=== PATIENT | male | born 1965 | race Caucasian/White ===

== ENCOUNTER → 2017-02-12 | Outpatient (CLI) | payer OTHER ==
[~2017-02-12] MED LIST: ACYCLOVIR400 MG PO; ALBUTEROL0.09 MG/A2 INH; AMOXICILLIN500 MG PO; AMOXIL500 MG PO; ANAPROX DS550 MG PO; ATARAX,VISTARIL50 MG PO; AUGMENTIN 875 M1 TAB PO; BENZTROPINE ME0.5 MG PO; CLARITIN10 MG PO; HALDOL5 MG PO; KEFLEX500 MG PO; LIDEX 0.05% CRE15 GM T; LISINOPRIL10 MG PO; MEDROL DOSEPAK4 MG PO; METFORMIN500 MG PO; PRAVACHOL20 MG PO; REMERON45 MG PO; RISPERDAL4 MG PO; SYNTHROID,LEVO50 MCG PO; TESSALON PERLE100 M1 PO; TRAMADOL HCL50 MG PO; TRAZADONE HYDR100 MG PO; VICODIN 500 MG-1 TAB PO; VISTARIL25 M1 PO; VITAMIN D50000 I3 PO; ZITHROMAX Z PA250 MG PO; ZOLOFT100 MG PO; ZYRTEC10 M2 PO
== END | disposition home or self-care (01) ==
LOC: MRI 02-11 08:00
DX: J32.2 Chronic ethmoidal sinusitis (principal); H90.41 Sensorineural hearing loss, unilateral, right ear, with unrestricted hearing on the contralateral side

== ENCOUNTER → 2017-12-28 | Outpatient (CLI) | payer OTHER ==
[~2017-12-28] MED LIST changes: +MOTRIN 600 MG E4 TAB PO
== END | disposition home or self-care (01) ==
LOC: MRI 12-18 13:00
DX: M48.02 Spinal stenosis, cervical region (principal)

== ENCOUNTER 2018-07-20 17:53 | Inpatient (IN) | payer OTHER ==
[~2018-07-20] VITALS: Ht 182.8 cm; Wt 112.6 kg
--- NOTE | ~2018-07-20 | EKG ---
[place], [place] ELECTROCARDIOGRAM REPORT NAME: KALEN BACON UNIT #: [id number] ROOM: 424 DOCTOR: JOANIE DRAFT REPORT BIRTHDATE: [birth year] [facility] Test Date: 2018-07-20 Test Time: 18:44:19 Pat Name: KALEN BACON Department: Room: 424 Gender: M Orthopaedic Physician Assistant: Elvia Grande : 1965 Requested By: ZION QUIROGA Order Number: [id number] Reading MD: Faith Green Measurements Intervals [place] Rate: 77 P: 54 CA: 125 QRS: -49 QRSD: 96 T: 27 QT: 386 QTc: 437 Interpretive Statements Sinus rhythm Left anterior fascicular block Abnormal R-wave progression, late transition Electronically Signed On 07-21-2018 11:00:51 PDT by Faith Green CM:EKGRPT:ELECTROCARDIOGRAM REPORT [id number] ZION NAIR DRAFT REPORT ZION QUIROGA M.D.
--- NOTE | ~2018-07-20 | CON ---
[place], [place] REPORT OF CONSULTATION NAME: KALEN BACON UNIT #: [id number] ROOM: 424 DOCTOR: PHD BHUPINDER SHER BIRTHDATE: [birth year] DOS: 07/21/2018 HISTORY OF PRESENT ILLNESS: The patient is a 53-year-old male, referred by the hospitalist due to concerns for suicidal ideation. The patient is presently on the 4th floor at [facility]. The patient has been in a relationship with his partner for the past 3 years. They have a daughter together. The patient was living with his uncle, but his uncle asked him to leave because the patient was not taking his medications as prescribed and his behavior had become erratic. The patient has been staying with friends for the past few weeks, but is unsure what his long-term plans are. 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 He is planning on pursuing disability. The patient drinks 30 beers daily. He denied tobacco use and endorsed occasional marijuana use. PAST MEDICAL HISTORY: Anxiety, bronchitis, depression, diabetes, hyperlipidemia, hypothyroidism, paranoid schizophrenia, right shoulder pain, sinusitis. MEDICATIONS: Vitamin D, B12, thiamine 100 mg, Zoloft, Zestril, Haldol, Lovenox, Synthroid, Zocor, Remeron, Vistaril, DuoNeb, Humalog. ALLERGIES: BENTYL, ROBAXIN, ATIVAN, LIBRIUM. SOCIAL HISTORY: The patient was lying in bed, in no apparent distress. He was awake, alert and oriented. His girlfriend was present with his permission. Mood was depressed and affect was restricted in range. He firmly denied suicidal ideation, plan and intent. He also denied homicidal ideation, plan and intent. He stated his depression has improved since he has been in the hospital and working with [facility] to pursue inpatient drug rehab. He stated he was feeling suicidal several days ago, but was able to contract for safety. He denied a plan. He endorsed feeling hopeless, helpless. He is perseverating on his current homelessness. He follows up with [facility] for his outpatient treatment and states he has his next appointment on 08/10/2018. His girlfriend stated that he does very well on his medications and then stops taking them and becomes paranoid and delusional. Speech and language were within normal limits conversationally. Thought content was linear and goal directed. There was no evidence of hallucinations or delusions. Insight and judgment were fair. The patient is open to pursuing inpatient drug rehab. He denied a need for inpatient psychiatric treatment at this time given that he is not suicidal and wanting to . DIAGNOSIS: Alcohol use disorder, schizoaffective disorder. PLAN: At this time, given that the patient is denying suicidal ideation, plan and intent, he does not appear appropriate for inpatient psychiatric treatment. He would likely benefit more from continuing with [facility] services to address his alcohol use disorder. The patient is stating he is hoping to be placed in an inpatient alcohol rehabilitation program, which would likely be very beneficial for him. [place], [place] REPORT OF CONSULTATION NAME: KALEN BACON UNIT #: [id number] ROOM: 424 DOCTOR: BHUPINDER, PHD SHER BIRTHDATE: [birth year] Thank you very much for this consult. Natty Suazo, PhD CM:CONSTR:REPORT OF CONSULTATION 1421 07/21/18 [id number] interface
[2018-07-20 17:55] VITALS: BP 105/72
--- NOTE | 2018-07-20 18:06 | NUR ---
PATIENT BELONGINGS HAVE BEEN TAKEN AT THIS TIME AND PLACED IN MED ROOM. 2 BAGS TOTAL. INCLUDED IS JEANS, SHIRT, HAT, MEDS, SHOES. PATIENT CHANGED INTO GOWN.
--- NOTE | 2018-07-20 18:19 | NUR ---
psychiatric assessment: met with client who is known to me, client reports that he came here because he was having some thoughts off and on and he has been drinking more. he reports that he is not suicidal now, but he also said that he is homeless and he is having some chest tightness and anxiety. dr humphrey is going to check him out medically and then we can move forward, perhaps [facility] for the alcohol since he is not suicidal with a plan now. it would not be likely that he would meet criteria for inpatient psych at this time, since he is denying suicide and he has no plan.
--- NOTE | 2018-07-20 18:30 | NUR ---
URINAL GIVEN TO PATIENT AT THIS TIME FOR URINE SAMPLE.
[2018-07-20 18:35] LABS: BASO % 0.4 % (0.0-1.0); EOS # 0.1 10*3/uL (0.0-0.4); EOS % 0.8 % (1.0-4.0); HEMATOCRIT 42.7 % (42.0-52.0); HEMOGLOBIN 14.5 g/dl (14.0-18.0); LYMPH # 1.8 10*3/uL (1.3-4.4); LYMPH % 19.9 % (27.0-41.0); MEAN CELL VOLUME 97.3 fl (80.0-94.0); MEAN PLATELET VOLUME 9.9 fl (9.6-12.3); MONO # 0.7 10*3/uL (0.1-1.0); MONO % 7.6 % (3.0-9.0); NEUT # 6.5 10*3/uL (2.3-7.9); NEUT % 71.1 % (47.0-73.0); PLATELET COUNT AUTOMATED 204 10*3/uL (130-400); RED BLOOD COUNT 4.39 10*6/uL (4.50-5.90); RED CELL DISTRI WIDTH 13.2 % (0-14.5); WHITE BLOOD COUNT 9.1 10*3/uL (4.8-10.8)
[2018-07-20 18:50] LABS: BUN 13 mg/dl (7-24); CHLORIDE 107 mmol/L (98-107); CREATININE 1.01 mg/dL (0.70-1.30); SODIUM 140 mmol/L (136-145)
[2018-07-20 18:53] LABS: ACETAMINOPHEN (TYLENOL) < 5.0 ug/ml (10-30); ETHYL ALCOHOL < 3.0 mg/dl (<3)
[2018-07-20 19:07] LABS: BILIRUBIN NEGATIVE (NEGATIVE); BLOOD NEGATIVE (NEGATIVE); CLARITY CLEAR (CLEAR); COLOR YELLOW (YELLOW); GLUCOSE NEGATIVE (NEGATIVE); KETONE 1+ (NEGATIVE); LEUKO ESTERASE NEGATIVE (NEGATIVE); NITRITE NEGATIVE (NEGATIVE); PH 5.5 (5.0-9.0); SPECIFIC GRAVITY >= 1.030 (1.005-1.030); UROBILINOGEN 0.2 E.U./dl (0.2-1.0)
[2018-07-20 19:16] LABS: URINE AMPHETAMINES < 1000 (1000ng/ml); URINE BARBITURATES < 200 (200ng/ml); URINE BENZODIAZEPINES < 200 (200ng/ml); URINE CANNABINOIDS (THC) > 50 (50ng/ml); URINE COCAINE < 300 (300ng/ml); URINE METHADONE < 300 (300ng/ml); URINE OPIATES < 300 (300ng/ml)
[2018-07-20 19:25] LABS: URINE PHENCYCLIDINE < 25 (25ng/ml)
[2018-07-20 19:29] LABS: BACTERIA TRACE; EPITHELIAL CELLS 0-2; MUCOUS 3+; WBC 0-2 wbc/hpf (0-5)
--- NOTE | 2018-07-20 21:51 | NUR ---
CALLED ER TO LET VALARIE RN KNOW THAT HE CAN BRING THE PATIENT UP. WAS TOLD "[facility] IS OFF THE FLOOR AND IT MIGHT BE A WHILE."
[2018-07-20 22:30] VITALS: BP 134/91
--- NOTE | 2018-07-20 22:34 | NUR ---
Time: 2233 A 53 year old MALE admitted to 4E under services of ESPERANZA CUEVAS DO. Pt. arrived via stretcher from ER. Chief complaint: SUICIDAL THOUGHTS. SHARON PEÑA
[2018-07-20] MEDS ORDERED: SIMVASTATIN20 MG PO (22:38)
--- NOTE | 2018-07-20 23:00 | NUR ---
DR AVENDANO AWARE OF PATIENT REQUESTING FOOD BECAUSE HE HAS NOT EATEN. OK TO ORDER PATIENT REGULAR DIET
--- NOTE | 2018-07-21 01:11 | NUR ---
MEDICATED WITH [facility] FOR C/O ANXIOUSNESS. WILL MONITOR
[2018-07-21 06:24] LABS: BASO % 0.3 % (0.0-1.0); EOS # 0.2 10*3/uL (0.0-0.4); EOS % 2.3 % (1.0-4.0); HEMATOCRIT 37.7 % (42.0-52.0); HEMOGLOBIN 12.9 g/dl (14.0-18.0); LYMPH # 2.9 10*3/uL (1.3-4.4); LYMPH % 45.7 % (27.0-41.0); MEAN CELL VOLUME 98.4 fl (80.0-94.0); MEAN CORPUSCULAR HGB 33.7 pg (27.0-31.0); MEAN CORPUSCULAR HGB CONC 34.2 g/dl (33.0-37.0); MEAN PLATELET VOLUME 10.1 fl (9.6-12.3); MONO # 0.7 10*3/uL (0.1-1.0); MONO % 10.1 % (3.0-9.0); NEUT # 2.7 10*3/uL (2.3-7.9); NEUT % 41.3 % (47.0-73.0); PLATELET COUNT AUTOMATED 173 10*3/uL (130-400); RED BLOOD COUNT 3.83 10*6/uL (4.50-5.90); RED CELL DISTRI WIDTH 13.3 % (0-14.5); WHITE BLOOD COUNT 6.4 10*3/uL (4.8-10.8)
[2018-07-21 06:44] LABS: BUN 11 mg/dl (7-24); CHLORIDE 108 mmol/L (98-107); CREATININE 0.88 mg/dL (0.70-1.30); POTASSIUM 3.4 mmol/L (3.5-5.1); SODIUM 140 mmol/L (136-145)
[2018-07-21 08:00] VITALS: BP 106/48
--- NOTE | 2018-07-21 09:00 | NUR ---
Judo Teacher in to talk to patient. Patient [place] [address] with . There are steps in the home. Physician: [facility] Pharmacy: none Home health services: none Patient's level of ADLs: INDEPENDENT Patient has working utilities: patient states he is homeless DME: none Follow-up physician's appointment after d/c: will be made by hospitalist nurse director upon discharge Does patient want to access PORTAL?: no Discharge plan discussed with patient, patient states he was living with his uncle and his uncle moved in with his girlfriend, patient states he has not had anyplace to live for the last couple of weeks, patient also stated that he doesn't have any income. discussed with patient going to a homeless custodial when discharged, patient was undecided at this time what he will do upon discharge. LISA SANDHU
--- NOTE | 2018-07-21 10:48 | NUR ---
LESLIE FROM [facility] HERE, STATES PT IS ACCEPTED INTO [facility]. DR ALO ZAIDI.
--- NOTE | 2018-07-21 10:51 | NUR ---
PATIENT MEETS [facility]. PATIENT WANTS RESIDENTIAL TREATMENT FOR HIS AFTERCARE PLAN. [place] STAFF WILL FOLLOW UP WITH PATIENT. LESLIE TATE B.A. RAMP FLIGHT ATTENDANT
[2018-07-21 12:00] VITALS: BP 117/61
--- NOTE | 2018-07-21 13:08 | NUR ---
DR ROE'S OFFICE NOTIFIED OF NEW CONSULT.
--- NOTE | 2018-07-21 15:12 | NUR ---
[place] STAFF MADE REFERRAL TO [facility] FOR PATIENT'S AFTERCARE PLAN. [place] STAFF WILL FOLLOW UP WITH [facility] ON THURSDAY FOR PATIENT'S OVER THE PHONE ASSESSMENT. PATIENT AGREES WITH AFTERCARE PLAN. LESLIE TATE B.A. PROGRAM TRAINER
[2018-07-21 16:00] VITALS: BP 105/55
[2018-07-21 20:00] VITALS: BP 100/52
[2018-07-22] VITALS: BP 134/63
[2018-07-22 07:40] LABS: ALBUMIN 3.5 gm/dl (3.1-4.5); BUN 11 mg/dl (7-24); CHLORIDE 110 mmol/L (98-107); POTASSIUM 4.1 mmol/L (3.5-5.1); SODIUM 141 mmol/L (136-145)
[2018-07-22 07:45] LABS: ALKALINE PHOSPHATASE 79 U/L (45-117); CREATININE 0.91 mg/dL (0.70-1.30); SGOT/AST 9 IU/L (3-35); SGPT/ALT 17 U/L (12-78); TOTAL PROTEIN 6.9 gm/dL (6.4-8.2)
[2018-07-22 08:00] VITALS: BP 124/60
--- NOTE | 2018-07-22 08:00 | NUR ---
PT RESTING IN BED, PT DENIES ANY COMPLAINTS. CALL LIGHT WITHIN REACH.
[2018-07-22 12:00] VITALS: BP 144/71
--- NOTE | 2018-07-22 12:16 | NUR ---
[place] STAFF FOLLOWED UP WITH PATIENT. PATIENT IS STILL WANTING TO GO TO [facility] FOR HIS AFTERCARE PLAN. LESLIE TATE B.A. SWORD SWALLOWER
[2018-07-22 16:00] VITALS: BP 120/67
[2018-07-22 20:00] VITALS: BP 140/75
--- NOTE | 2018-07-22 20:09 | NUR ---
ASSUMED CARE OF PATIENT. PATIENT IS RESTING IN BED WITH EASY AND REGULAR RESPERS ON ROOM AIR. ASSESSMENT IS COMPLETE WITH NO C/O OR S/S OF DISTRESS NOTED AT THIS TIME. BED IS LOW, LOCKED, AND CALL LIGHT IS WITHIN REACH. SEE SHIFT ASSESSMENT.
--- NOTE | 2018-07-22 20:57 | NUR ---
BSG 113.
[2018-07-23] VITALS: BP 126/65
--- NOTE | 2018-07-23 06:21 | NUR ---
BSG 140.
--- NOTE | 2018-07-23 09:00 | NUR ---
PT SEEN AT THIS TIME. PT PLEASANT AND COOPERATVE. PT HAS NO COMPLAINTS AT THIS TIME. BED IN LOWEST LOCKED POSTION AND CALL LIGHT WITHIN REACH
--- NOTE | 2018-07-23 11:15 | NUR ---
PATIENT'S AFTERCARE HAS CHANGED. PATIENT HAS BEEN ACCEPTED TO [facility] FOR RESIDENTIAL TREATMENT. [facility] HAS AN AVAILABLE BED FOR HIM ON THURSDAY, July. ID STAFF WILL BE ABLE TO SET UP TRANSPORTATION THROUGH HIS INSURANCE FOR THURSDAY. LESLIE TATE B.A. HIDE BUYER
--- NOTE | 2018-07-23 11:21 | NUR ---
PT COMPLAINING OF CONSTIPATION AT THIS TIME. PRN MOM ADMINSTERED. WILL MONITOR FOR EFFECTIVENESS.
[2018-07-23 12:00] VITALS: BP 103/58; BP 142/87
--- NOTE | 2018-07-23 13:33 | NUR ---
PT STATES THAT HE HAD A BOWEL MOVEMENT. PREVIOUS PRN MOM CONSIDERED EFFECTIVE.
[2018-07-23 16:00] VITALS: BP 126/72
[2018-07-23 20:00] VITALS: BP 127/71
[2018-07-24] VITALS: BP 116/74
[2018-07-24 06:05] LABS: BASO % 0.5 % (0.0-1.0); EOS # 0.2 10*3/uL (0.0-0.4); EOS % 2.6 % (1.0-4.0); HEMATOCRIT 41.1 % (42.0-52.0); HEMOGLOBIN 13.4 g/dl (14.0-18.0); LYMPH # 2.8 10*3/uL (1.3-4.4); LYMPH % 43.3 % (27.0-41.0); MEAN CELL VOLUME 98.3 fl (80.0-94.0); MEAN CORPUSCULAR HGB 32.1 pg (27.0-31.0); MEAN CORPUSCULAR HGB CONC 32.6 g/dl (33.0-37.0); MEAN PLATELET VOLUME 10.2 fl (9.6-12.3); MONO # 0.6 10*3/uL (0.1-1.0); MONO % 8.9 % (3.0-9.0); NEUT # 2.9 10*3/uL (2.3-7.9); NEUT % 44.4 % (47.0-73.0); PLATELET COUNT AUTOMATED 167 10*3/uL (130-400); RED BLOOD COUNT 4.18 10*6/uL (4.50-5.90); RED CELL DISTRI WIDTH 13.2 % (0-14.5); WHITE BLOOD COUNT 6.5 10*3/uL (4.8-10.8)
[2018-07-24 08:00] VITALS: BP 128/84; BP 130/70
[2018-07-24 12:00] VITALS: BP 144/77
--- NOTE | 2018-07-24 14:15 | NUR ---
PATIENT REQUESTING TO GET A SHOWER, DR CHAVEZ CALLED- OK TO REMOVE MONITOR TO SHOWER.
[2018-07-24 16:00] VITALS: BP 126/71
[2018-07-24 20:00] VITALS: BP 143/74
[2018-07-25] VITALS: BP 122/58
--- NOTE | 2018-07-25 02:58 | NUR ---
24 HR chart check completed.
[2018-07-25 06:56] LABS: CREATININE 0.78 mg/dL (0.70-1.30)
[2018-07-25 08:00] VITALS: BP 152/90; BP 156/88
[2018-07-25 12:00] VITALS: BP 142/78
[2018-07-25 16:00] VITALS: BP 145/74
--- NOTE | 2018-07-25 19:44 | NUR ---
PATIENT ALLOWED TO TAKE A SHOWER. MONITOR REPLACED ONCE SHOWER TO COMPLETED. PATIENT DENIES ANY COMPLAINTS AT THIS TIME. DENIES ANY FEELINGS OF WITHDRAWAL. DENIES SUICIDAL IDEATIONS. PATIENT STATES HE "FEELS GOOD." PATIENT IS AWAKE, ALERT, AND ORIENTED. NO S/S OF DISTRESS. CALL LIGHT WITHIN REACH.
[2018-07-25 20:00] VITALS: BP 123/66
[2018-07-26] VITALS: BP 114/60
[2018-07-26 08:00] VITALS: BP 138/90
--- NOTE | 2018-07-26 10:33 | NUR ---
PT DC TO [facility]. AWAITING TRANSPORT FROM [facility].
--- NOTE | 2018-07-26 12:12 | NUR ---
24 HR chart check completed.
--- NOTE | 2018-07-26 12:20 | NUR ---
Discharge instructions reviewed with patient/family. Patient receptive and verbalizes understanding. Follow-up care arranged. Written instructions given to patient/family. BAYRON BARRETT
== END 2018-07-26 12:12 | disposition home or self-care (01) | DRG 897 ==
LOC: ED 17:53 → 4E 19:59 → EDHOLD 19:59 → 4E 21:01
PROVIDERS: Emergency Medicine; Family Medicine; ADMIT Internal Medicine
DX: F10.239 Alcohol dependence with withdrawal, unspecified (principal); R45.851 Suicidal ideations; F32.9 Major depressive disorder, single episode, unspecified; Z78.9 Other specified health status; E11.9 Type 2 diabetes mellitus without complications; E03.9 Hypothyroidism, unspecified; F41.9 Anxiety disorder, unspecified; K59.00 Constipation, unspecified; F25.9 Schizoaffective disorder, unspecified; E78.5 Hyperlipidemia, unspecified; E87.6 Hypokalemia; E87.8 Other disorders of electrolyte and fluid balance, not elsewhere classified; E53.8 Deficiency of other specified B group vitamins; R00.2 Palpitations; Z59.0 Homelessness; Z82.49 Family history of ischemic heart disease and other diseases of the circulatory system; Z83.3 Family history of diabetes mellitus; Z82.3 Family history of stroke; Z79.84 Long term (current) use of oral hypoglycemic drugs; Z79.899 Other long term (current) drug therapy; Z88.8 Allergy status to other drugs, medicaments and biological substances

== ENCOUNTER → 2019-11-08 | Outpatient (CLI) | payer OTHER ==
[~2019-11-08] MED LIST changes: +SIMVASTATIN20 MG PO
[2019-11-08 11:05] LABS: BASO % 0.6 % (0.0-1.0); EOS # 0.1 10*3/uL (0.0-0.4); EOS % 2.2 % (1.0-4.0); HEMATOCRIT 41.6 % (42.0-52.0); LYMPH % 31.2 % (27.0-41.0); MEAN CELL VOLUME 89.8 fl (80.0-94.0); MEAN CORPUSCULAR HGB 30.5 pg (27.0-31.0); MEAN CORPUSCULAR HGB CONC 33.9 g/dl (33.0-37.0); MEAN PLATELET VOLUME 9.7 fl (9.6-12.3); MONO # 0.6 10*3/uL (0.1-1.0); MONO % 9.3 % (3.0-9.0); NEUT # 3.6 10*3/uL (2.3-7.9); NEUT % 56.2 % (47.0-73.0); PLATELET COUNT AUTOMATED 221 10*3/uL (130-400); RED BLOOD COUNT 4.63 10*6/uL (4.50-5.90); RED CELL DISTRI WIDTH 13.2 % (0-14.5); WHITE BLOOD COUNT 6.3 10*3/uL (4.8-10.8)
[2019-11-08 11:11] LABS: BILIRUBIN NEGATIVE (NEGATIVE); BLOOD NEGATIVE (NEGATIVE); CLARITY CLEAR (CLEAR); COLOR YELLOW (YELLOW); GLUCOSE NEGATIVE (NEGATIVE); KETONE NEGATIVE (NEGATIVE); LEUKO ESTERASE NEGATIVE (NEGATIVE); MUCOUS TRACE; NITRITE NEGATIVE (NEGATIVE); RBC 0-2 rbc/hpf (0-2); UROBILINOGEN 0.2 E.U./dl (0.2-1.0); WBC 0-2 wbc/hpf (0-5)
[2019-11-08 11:20] LABS: ALBUMIN 4.1 gm/dl (3.1-4.5); ALKALINE PHOSPHATASE 95 U/L (45-117); BUN 12 mg/dl (7-24); CHLORIDE 105 mmol/L (98-107); CREATININE 0.82 mg/dL (0.70-1.30); SGOT/AST 16 IU/L (3-35); SGPT/ALT 27 U/L (12-78); SODIUM 139 mmol/L (136-145); TOTAL PROTEIN 7.5 gm/dL (6.4-8.2)
== END | disposition home or self-care (01) ==
LOC: LAB 10:35
PROVIDERS: Family Medicine
DX: I10 Essential (primary) hypertension (principal); E03.9 Hypothyroidism, unspecified; E55.9 Vitamin D deficiency, unspecified; E11.9 Type 2 diabetes mellitus without complications

== ENCOUNTER → 2020-02-17 | Outpatient (CLI) | payer OTHER | END | disposition home or self-care (01) | LOC: US 14:06 | PROVIDERS: ATTEND Family Medicine | DX: R22.1 Localized swelling, mass and lump, neck (principal) ==

== ENCOUNTER → 2020-03-15 | Outpatient (CLI) | payer OTHER | END | disposition home or self-care (01) | LOC: ORTHO 13:36 | PROVIDERS: ATTEND Orthopaedic Surgery | DX: M17.12 Unilateral primary osteoarthritis, left knee (principal) ==

== ENCOUNTER 2021-04-21 06:53 | Emergency (ER) | payer MEDICARE, MEDICAID ==
[~2021-04-21] VITALS: Wt 97.5 kg
[2021-04-21 07:15] VITALS: BP 145/72
[2021-04-21] MEDS ORDERED: MUCINEX DM 30/61 TAB PO (07:29)
== END 2021-04-21 07:46 | disposition home or self-care (01) ==
LOC: ED 06:53
DX: R05.9 Cough, unspecified (principal); Z20.822 Contact with and (suspected) exposure to COVID-19; Z79.899 Other long term (current) drug therapy

== ENCOUNTER → 2021-09-16 | Outpatient (CLI) | payer OTHER, MEDICAID ==
[~2021-09-16] MED LIST changes: +MUCINEX DM 30/61 TAB PO
[2021-09-16 11:53] LABS: BASO % 0.5 % (0.0-1.0); EOS # 0.1 10*3/uL (0.0-0.4); EOS % 1.5 % (1.0-4.0); HEMATOCRIT 41.3 % (42.0-52.0); LYMPH # 2.1 10*3/uL (1.3-4.4); LYMPH % 27.7 % (27.0-41.0); MEAN CELL VOLUME 94.9 fl (80.0-94.0); MEAN CORPUSCULAR HGB 32.6 pg (27.0-31.0); MEAN CORPUSCULAR HGB CONC 34.4 g/dl (33.0-37.0); MEAN PLATELET VOLUME 9.6 fl (9.6-12.3); MONO # 0.6 10*3/uL (0.1-1.0); MONO % 7.4 % (3.0-9.0); NEUT # 4.7 10*3/uL (2.3-7.9); NEUT % 62.5 % (47.0-73.0); PLATELET COUNT AUTOMATED 240 10*3/uL (130-400); RED BLOOD COUNT 4.35 10*6/uL (4.50-5.90); RED CELL DISTRI WIDTH 12.7 % (0-14.5); WHITE BLOOD COUNT 7.5 10*3/uL (4.8-10.8)
[2021-09-16 12:09] LABS: ALKALINE PHOSPHATASE 107 U/L (45-117); BUN 18 mg/dl (7-24); CHLORIDE 105 mmol/L (98-107); CHOLESTEROL 128 mg/dL (<200); CREATININE 1.07 mg/dL (0.70-1.30); LDL CHOLESTEROL 40 mg/dL (9-159); POTASSIUM 4.3 mmol/L (3.5-5.1); SGOT/AST 12 IU/L (3-35); SGPT/ALT 20 U/L (12-78); SODIUM 138 mmol/L (136-145); TRIGLYCERIDES 203 mg/dl (<150)
== END | disposition home or self-care (01) ==
LOC: LAB 11:35
PROVIDERS: ATTEND Family Medicine
DX: I10 Essential (primary) hypertension (principal); F20.0 Paranoid schizophrenia; N40.0 Benign prostatic hyperplasia without lower urinary tract symptoms; E11.9 Type 2 diabetes mellitus without complications; E03.9 Hypothyroidism, unspecified; M54.12 Radiculopathy, cervical region; E55.9 Vitamin D deficiency, unspecified